=== PATIENT | male | born 1990 | race Caucasian/White ===

== ENCOUNTER 2017-10-26 19:53 | Emergency (ER) | payer OTHER ==
[2017-10-26] MEDS: LIDOCAINE 1% MDV 20ML VIAL SC (21:30)
[2017-10-26] MEDS: CEPHALEXIN 500 MG CAP PO (22:05)
== END 2017-10-26 22:22 | disposition home or self-care (01) ==
LOC: M ED 19:53
DX: S60.352A Superficial foreign body of left thumb, initial encounter (principal); W45.8XXA Other foreign body or object entering through skin, initial encounter; Y92.814 Boat as the place of occurrence of the external cause; Y93.9 Activity, unspecified; Y99.9 Unspecified external cause status
CPT/HCPCS: 10120